=== PATIENT | male | born 1945 | race Caucasian/White ===

== ENCOUNTER 2018-04-12 11:16 | Inpatient (IN) ==
[2018-04-12] MEDS ORDERED: Metoprolol Tartrate 25 MG Tablet PO ONE (12:26)
[2018-04-12] MEDS ORDERED: Chlorhexidine Gluconate 2% 1 Pack (2 Cloths) TOPICAL ONE (12:26)
[2018-04-12] MEDS ORDERED: ceFAZolin 2 GM IV; once IV.SIG ONE (12:45)
[2018-04-12 12:51] LABS: INR 1.2 Ratio; Prothrombin Time 11.9 sec (9.8-11.6)
[2018-04-12] MEDS ORDERED: Sodium Chlor 0.9% Inj 500 ML IV.SIG SCH (13:00)
[2018-04-12] MEDS ORDERED: Bupivacaine PF 0.5% Inj 30 ML Vial ONE (13:08)
[2018-04-12] MEDS ORDERED: Bupivacaine Liposomal PF 1.3% Inj 20 ML Vial ONE (13:08)
[2018-04-12] MEDS ORDERED: Bupivacaine/Epinephrine 0.5% Inj 50 ML Vial ONE (13:33)
[2018-04-12] MEDS ORDERED: Neostigmine Inj 5 MG/5 ML Syringe IV.PUSH ONE (13:48)
[2018-04-12] MEDS ORDERED: Phenylephrine/NS 1000 MCG/10ML Syringe IV.PUSH ONE (13:48)
[2018-04-12] MEDS ORDERED: Succinylcholine Inj 100 MG/5 ML Syringe IV.PUSH ONE (13:48)
[2018-04-12] MEDS ORDERED: Glycopyrrolate Inj 1 MG/5 ML Syringe IV.PUSH ONE (13:48)
[2018-04-12] MEDS ORDERED: Normosol-R pH 7.4 Inj 1,000 ML IV.CONT ONE (13:48)
[2018-04-12] MEDS ORDERED: Promethazine 25 MG Supp RECTAL PRN (17:12)
[2018-04-12] MEDS ORDERED: Bisacodyl 10 MG Supp RECTAL PRN (17:12)
[2018-04-12] MEDS ORDERED: Naloxone Inj 0.4 MG/ML Vial IV.PUSH PRN (17:12)
[2018-04-12] MEDS ORDERED: Post-op Orders (for Pharmacy) OTHER ONE (17:12)
[2018-04-12] MEDS ORDERED: Morphine Sulfate Inj 2 MG/ML Vial IV.PUSH PRN (17:12)
[2018-04-12] MEDS ORDERED: Morphine Inj 4 MG/ML Vial IV.PUSH PRN (17:12)
[2018-04-12] MEDS ORDERED: Zolpidem Tartrate 5 MG Tablet PO PRN (17:12)
[2018-04-12] MEDS ORDERED: fentaNYL Citrate Inj 100 MCG/2 ML Ampul ONE (17:31)
[2018-04-12] MEDS: Sod Chloride 0.9% Inj 1,000 ML IV.CONT SCH (17:57)
[2018-04-12] MEDS ORDERED: Enoxaparin Inj 40 MG/0.4 ML Syringe SQ ONE (18:00)
--- NOTE | 2018-04-12 18:17 | MP ---
cc: Jersey Goldberg MD DATE OF OPERATION: 04/12/2018 PREOPERATIVE DIAGNOSES: 1. Unresectable ascending colon polyp. 2. Biopsy of ascending polyp showing suspicious for high-grade dysplasia. POSTOPERATIVE DIAGNOSES: 1. Unresectable ascending colon polyp. 2. Biopsy of ascending polyp showing suspicious for high-grade dysplasia. PROCEDURE PERFORMED: Laparoscopic right hemicolectomy. ATTENDING SURGEON: Jersey Goldberg MD. RELIABILITY TECHNICIAN: Operating room staff first crusher. ANESTHESIA: General and regional TAP block, as well as local anesthetic. ESTIMATED BLOOD LOSS: 25 mL. FINDINGS: 1. A tattoo in the descending colon close to the hepatic flexure. 2. Intraoperative consultation with pathology showing a tumor/polyp mass in the vicinity of the tattoo, in the specimen. 3. No evidence of any intra-abdominal pathology or metastatic disease on diagnostic laparoscopy. INDICATIONS FOR PROCEDURE: The patient is a 72-year-old male, who was identified to having an ascending polyp with high-grade dysplasia on a colonoscopy. The patient was referred to surgical oncology for further evaluation and management. On staging CT scan, he had no evidence of any metastatic disease and there was noted to be some potential changes of the right colon with no evidence of any lymphadenopathy. Discussed with the patient treatment including laparoscopic versus open right hemicolectomy for treatment of his polyp and possible colon cancer. The patient agreed to undergo the procedure. DESCRIPTION OF PROCEDURE: The patient was taken to the operating room and placed in supine position, placed under general endotracheal anesthesia. The patient's abdomen was shaved, prepped and draped in sterile fashion. Timeout was performed. The abdomen was entered through a Rajendra direct entry technique through the periumbilical incision. We placed a 5 mm 0-degree camera into the abdomen through a 10 mm port below the umbilicus and surveyed the abdomen. There is no evidence of any complication from our entry. There was normal-appearing liver. The gallbladder was distended. There is no evidence of any metastatic disease. There was a tattoo in the ascending colon near the hepatic flexure. We placed a 5 mm port in right upper quadrant and a 5 mm port in the suprapubic area under direct visualization of the laparoscope. We were able to use the laparoscopic LigaSure to take down the white line of Toldt and completely mobilized the right colon from lateral to medial. We also took down the hepatic flexure as well. We then turned our attention to the medial and lateral approach and identify the vascular bundle in the ileocolic region. We dissected around these vessels with a laparoscopic LigaSure until they were isolated, but not completely dissected from the surrounding mesenteric fat. We used 2 white loads on Corn KAYLAN staplers to divide the ileocolic vessels and took a poorly. At this point in time, we had a very mobile right colon. It was amenable to a small hand port to remove the colon and perform our anastomosis. We performed a horizontal incision approximately 2 inches long in the right upper quadrant by extending the port in the right upper quadrant laterally. This was done with a 15 blade scalpel. Bovie electrocautery was dissected subcutaneous tissue and open the external rectus fascia. We dissected the rectus muscles free from the surrounding rectus fascia and retracted it laterally. We divided the posterior rectus fascia and entered the peritoneum with the LigaSure. We placed an Kishore small wound protector. We were able to grasp the right colon and bring this out of the patient through the hand port quite easily. We had the terminal ileum all the way to the transverse colon extracorporal through our hand port. We then divided the terminal ileum. As well as the transverse colon just past the hepatic flexure with the blue loads on the Corn stapler. Taking the remaining small areas of mesentery down with the LigaSure and passed the specimen off for intraoperative consultation by pathology. This returned the specimen with the polypoid mass. We then performed a [id number] functional end-to-end anastomosis with the terminal ileum and the proximal transverse colon. This was done with blue load on the Corn 60 stapler and then the staple defect was closed with a second Corn 60 blue load. Excellent intact staple lines with good viable, pink healthy tissue and without bleeding. We placed 3-0 silk pop-off sutures proximal and distal on the crotch of the staple line, as well as distal stapled ends. We closed the mesenteric defect with a running 3-0 Vicryl suture. We then placed the anastomosis back into the abdomen and assured this was not twisted. placed omentum back over the midline. We took out our hand port and closed the posterior rectus sheath with a running 0 Vicryl suture. We then closed the anterior rectus sheath with a second 0 Vicryl suture once we had placed the rectus muscle back in the proper anatomic position. The rectus muscles of note were not divided in any way. We then closed the Jeremi's fascia and skin with 3-0 Vicryl followed by 4-0 Vicryl and Dermabond. We did reinsufflate the abdomen and looked through the 10 mm port to survey the abdomen and there again was no evidence of any complication from the surgery and the anastomosis lay in the right upper quadrant. The omentum was overlying the midline and the anastomosis. We then removed a 5 mm suprapubic port under visualization of the laparoscope and expressed pneumoperitoneum. We placed a [id number] suture and the Rajendra entry site below the umbilicus at the level of the fascia. We closed the skin of the 2 port sites with 4-0 Vicryl and Dermabond. The patient underwent regional TAP block for anesthesia report after the procedure. The patient was transferred to the recovery room in stable condition after being extubated and then discontinued from anesthesia. The patient tolerated the procedure well and there were no apparent complications. All counts were correct, and I was present and scrubbed for the entire procedure. MD SUMMER JuarezG/pilar , 04:59 PM , 05:14 PM MTDD
[2018-04-12] MEDS ORDERED: ceFAZolin Inj 1,000 MG in Sodium Chlor 0.9% Inj 100 ML IV.SIG SCH (22:00)
[2018-04-12] MEDS: ceFAZolin 1 GM Premix Inj 1 GM/50 ML FROZ.PIGGY IV.SIG SCH (22:03)
[2018-04-12] MEDS: Senna/Docusate Sodium 8.6/50 MG Tablet PO SCH (22:53)
[2018-04-13] MEDS: Sod Chloride 0.9% Inj 1,000 ML IV.CONT SCH ×3 (02:32→13:06)
[2018-04-13] MEDS: ceFAZolin 1 GM Premix Inj 1 GM/50 ML FROZ.PIGGY IV.SIG SCH ×2 (05:06→13:04)
[2018-04-13] MEDS: Levothyroxine 100 MCG Tablet PO SCH (05:07)
[2018-04-13] MEDS: Senna/Docusate Sodium 8.6/50 MG Tablet PO SCH ×2 (09:07→20:35)
[2018-04-13] MEDS: Lisinopril 5 MG Tablet PO SCH (09:07)
--- NOTE | 2018-04-13 17:15 | P.PNGS ---
Subjective Interval history: Up to chair Little nausea earlier today but better now Pain controlled Physical Exam Vital signs: Vital Signs 04/12/18 17:13 04/12/18 17:30 04/12/18 17:45 Temperature 98.2 F Pulse Rate 69 70 69 Respiratory Rate 18 18 18 Blood Pressure 126/66 126/66 131/67 Pulse Oximetry 95 95 95 04/12/18 18:00 04/12/18 20:00 04/12/18 22:52 Temperature 98 F 98.0 F Pulse Rate 69 70 Respiratory Rate 18 18 20 Blood Pressure 126/63 137/68 Pulse Oximetry 95 96 04/13/18 00:00 04/13/18 04:00 04/13/18 04:20 Temperature 97.3 F L 97.9 F Pulse Rate 70 70 Respiratory Rate 19 19 20 Blood Pressure 131/67 142/73 H Pulse Oximetry 95 95 04/13/18 08:00 04/13/18 09:20 04/13/18 12:00 Temperature 97.7 F 98.1 F Pulse Rate 70 70 Respiratory Rate 18 4 L 18 Blood Pressure 137/66 137/71 Pulse Oximetry 94 L 96 04/13/18 16:00 Temperature 97.3 F L Pulse Rate 71 Respiratory Rate 18 Blood Pressure 137/65 Pulse Oximetry 96 Intake & Output 04/12/18 04/13/18 04/13/18 18:59 06:59 18:59 Intake Total 2450 / 2450 2400 / 2400 1350 / 1350 Output Total 370 / 370 600 / 600 350 / 350 Balance 2080 / 2080 1800 / 1800 1000 / 1000 Weight 138.2 kg 140.1 kg Intake: IV 150 / 150 1500 / 1500 1350 / 1350 NS Inj 1,000 ML @ 100 mls/hr IV 1000 / 1000 1000 / 1000 .CONT .Q10H [facility] Rx#:[id number] Ofirmev Inj 1,000 mg In 100 ml 200 / 200 200 / 200 @ 400 mls/hr IV.SIG Q6H [facility] Rx# :[id number] Ancef 1 GM Premix Inj 1 gm In 100 / 100 50 / 50 50 ml @ 100 mls/hr IV.SIG Q8H [facility] Rx#:[id number] Ancef 2 GM Premix Inj 2 gm In 50 / 50 50 ml @ 100 mls/hr IV.SIG ONCE ONE Rx#:[id number] Flagyl 500 MG Inj 100 ML @ 200 100 / 100 200 / 200 100 / 100 mls/hr IV.SIG Q8H [facility] Rx#: [id number] Oral 900 / 900 Anesthesia Amount 2300 / 2300 Output: Urine 600 / 600 350 / 350 Estimated Blood Loss 20 / 20 Urine Amount (Catheter) 350 / 350 Indwelling Urethral Catheter 350 / 350 Other: Date of Last Bowel Movement 04/23/18 Weight On Admission 138 kg Narrative: Alert and awake Abd: mildly distended; soft; minimally tender - Urinary Catheter Management Indwelling Urethral Catheter Cath placed during this visit: yes Reason for continuing: Not indwelling catheter Insertion date: 04/12/18 Insertion time: 14:08 Results - Labs 04/15/18 05:40 Assessment and Plan - Plan 72 year old male POD1 lap assisted RIGHT hemicolectomy -Full liquids -IVF -OOB as tolerated -Bernabe removed; + post removal void - Attending Attestation The exam, history, and the medical decision-making described in the above note were completed with the assistance of the mid-level provider. I reviewed and agree with the findings presented. I attest that I had a [id number] encounter with the patient on the same day, and personally performed and documented my assessment and findings in the medical record. Patient s/p lap R swathi Abdominal exam soft, nontender ex postop pain, inc c/d/i await bowel fxn OOB
--- NOTE | 2018-04-13 20:07 | ECG ---
Date Performed: 04/12/2018 Time Performed: 11:50:56 PTAGE: 72 years EKG: ELECTRONIC VENTRICULAR PACEMAKER ABNORMAL RHYTHM ECG PREVIOUS TRACING : 02/26/2014 12.02 Since the previous tracing, no significant change noted DOCTOR: Donta Cooper Interpretating Date/Time 04/13/2018 20:05:48
[2018-04-14] MEDS: Levothyroxine 100 MCG Tablet PO SCH (05:05)
[2018-04-14] MEDS: Sod Chloride 0.9% Inj 1,000 ML IV.CONT SCH ×3 (05:06→21:40)
[2018-04-14] MEDS: Lisinopril 5 MG Tablet PO SCH (09:17)
[2018-04-14] MEDS: Senna/Docusate Sodium 8.6/50 MG Tablet PO SCH ×2 (09:18→21:40)
[2018-04-14 09:30] VITALS: PULSE 70
--- NOTE | 2018-04-14 15:49 | P.PNGS ---
Subjective Interval history: Up to chair No issues overnight or today Had liquids dark BM Physical Exam Vital signs: Vital Signs 04/13/18 16:00 04/13/18 20:00 04/14/18 00:00 Temperature 97.3 F L 98.6 F 97.5 F L Pulse Rate 71 70 70 Respiratory Rate 18 18 18 Blood Pressure 137/65 142/75 H 142/73 H Pulse Oximetry 96 96 96 04/14/18 04:00 04/14/18 08:00 04/14/18 10:05 Temperature 98.2 F 97.7 F Pulse Rate 72 70 Respiratory Rate 18 22 Blood Pressure 138/74 140/72 Pulse Oximetry 96 96 95 04/14/18 11:50 Temperature 97.6 F Pulse Rate 70 Respiratory Rate 18 Blood Pressure 138/72 Pulse Oximetry 96 Intake & Output 04/13/18 04/14/18 04/14/18 18:59 06:59 18:59 Intake Total 2150 / 2150 2120 / 2120 1000 / 1000 Output Total 1150 / 1150 800 / 800 Balance 1000 / 1000 1320 / 1320 1000 / 1000 Weight 141.5 kg Intake: IV 1350 / 1350 2000 / 2000 1000 / 1000 NS Inj 1,000 ML @ 100 mls/hr IV 1000 / 1000 1000 / 1000 1000 / 1000 .CONT .Q10H [facility] Rx#:[id number] Ofirmev Inj 1,000 mg In 100 ml 200 / 200 @ 400 mls/hr IV.SIG Q6H [facility] Rx# :[id number] LR 1000 mL Inj 1,000 ML @ 30 1000 / 1000 mls/hr IV.SIG .Q24H [facility] Rx#: [id number] Ancef 1 GM Premix Inj 1 gm In 50 / 50 50 ml @ 100 mls/hr IV.SIG Q8H [facility] Rx#:[id number] Flagyl 500 MG Inj 100 ML @ 200 100 / 100 mls/hr IV.SIG Q8H [facility] Rx#: [id number] Oral 800 / 800 120 / 120 Output: Urine 1150 / 1150 800 / 800 Other: # Voids 1 Date of Last Bowel Movement 04/23/18 04/14/18 # Bowel Movements 1 Narrative: Alert and awake Abd: soft; minimally tender around large RIGHT sided incision; c/d/i - Urinary Catheter Management Indwelling Urethral Catheter Cath placed during this visit: yes Reason for continuing: Not indwelling catheter Insertion date: 04/12/18 Insertion time: 14:08 Results - Labs 04/15/18 05:40 Assessment and Plan - Plan 72 year old male POD2 lap assisted RIGHT hemicolectomy -Full liquids; will advance to soft diet in the morning -IVF -OOB as tolerated -CBC and INR in the morning - Attending Attestation The exam, history, and the medical decision-making described in the above note were completed with the assistance of the mid-level provider. I reviewed and agree with the findings presented. I attest that I had a [id number] encounter with the patient on the same day, and personally performed and documented my assessment and findings in the medical record. Patient s/p lap R swathi Abdominal exam soft, nontender tolerating PO, has some flatus DC home soon
[2018-04-14 22:39] VITALS: RESP 18
[2018-04-15 05:50] LABS: Baso % (Auto) 0.4 % (0.0-2.0); Eos # (Auto) 0.1 th/mm3 (0.0-0.4); Hematocrit 34.7 % (39.0-51.0); Hemoglobin 11.8 gm/dL (13.0-17.0); Lymph # (Auto) 1.3 th/mm3 (1.0-4.8); Lymph % (Auto) 20.9 % (9.0-44.0); Mean Corpuscular HGB Conc 33.9 % (32.0-36.0); Mean Corpuscular Hemoglobin 29.9 pg (27.0-34.0); Mean Corpuscular Volume 88.1 fL (80.0-100.0); Mean Platelet Volume 8.1 fL (7.0-11.0); Mono # (Auto) 0.5 th/mm3 (0.0-0.9); Mono % (Auto) 7.9 % (0.0-8.0); Neut # (Auto) 4.4 th/mm3 (1.8-7.7); Neut % (Auto) 69.8 % (16.0-70.0); Platelet Count 151 th/mm3 (150-450); Red Blood Count 3.94 mil/mm3 (4.50-5.90); White Blood Count 6.3 th/mm3 (4.0-11.0)
[2018-04-15 06:00] LABS: INR 1.1 Ratio; Prothrombin Time 11.3 sec (9.8-11.6)
[2018-04-15] MEDS: Levothyroxine 100 MCG Tablet PO SCH (06:12)
[2018-04-15] MEDS: Sod Chloride 0.9% Inj 1,000 ML IV.CONT SCH ×2 (06:13→11:03)
[2018-04-15] MEDS: Senna/Docusate Sodium 8.6/50 MG Tablet PO SCH (08:16)
[2018-04-15] MEDS: Lisinopril 5 MG Tablet PO SCH (08:16)
--- NOTE | 2018-04-15 11:46 | P.DS ---
Date of admission: 04/12/18 17:27 Primary care physician: Rajan Carrasquillo Attending physician on discharge: Jersey Goldberg Anticipated date of discharge: 04/15/18 Brief History from admission: 72 year old male POD3 lap assisted RIGHT hemicolectomy DS: Summary Hospital Course: This is a 72 year old male POD3 lap assisted RIGHT hemicolectomy. The patient was able to tolerate a regular diet. The patient's pain was controlled using oral pain medications. He will follow up in the office. - Time Spent with Patient Total time spent providing and/or coordinating discharge services: Less than 30 minutes - Quality: VTE Deep Vein Thrombosis/Pulmonary Embolism Present on Admission: No Exam Vital signs: Vital Signs 04/14/18 11:50 04/14/18 16:00 04/14/18 20:00 Temperature 97.6 F 97.2 F L 98.4 F Pulse Rate 70 70 70 Respiratory Rate 18 20 18 Blood Pressure 138/72 131/74 151/75 H Pulse Oximetry 96 98 99 04/15/18 00:00 04/15/18 07:17 Temperature 98.1 F 98.1 F Pulse Rate 70 70 Respiratory Rate 18 18 Blood Pressure 136/71 131/75 Pulse Oximetry 95 97 Intake & Output 04/14/18 04/15/18 04/15/18 18:59 06:59 18:59 Intake Total 1000 / 1000 2000 / 2000 1000 / 1000 Output Total 1500 / 1500 900 / 900 Balance -500 / -500 1100 / 1100 1000 / 1000 Weight 144.8 kg Intake: IV 1000 / 1000 2000 / 2000 1000 / 1000 NS Inj 1,000 ML @ 100 mls/hr IV 1000 / 1000 2000 / 2000 1000 / 1000 .CONT .Q10H [facility] Rx#:[id number] Output: Urine 1500 / 1500 900 / 900 Other: Date of Last Bowel Movement 04/14/18 04/14/18 # Bowel Movements 1 Narrative: Alert and awake Abd: soft; incisions with skin glue---c/d/i Results Procedures completed during hospitalization: 72 year old male POD3 lap assisted RIGHT hemicolectomy Labs on day of discharge: Labs from last 24 hours 04/15/18 04/15/18 05:40 05:40 WBC 6.3 RBC 3.94 L Hgb 11.8 L Hct 34.7 L MCV 88.1 MCH 29.9 MCHC 33.9 RDW 15.0 Plt Count 151 MPV 8.1 Neut % (Auto) 69.8 Lymph % (Auto) 20.9 Nuckolls % (Auto) 7.9 Eos % (Auto) 1.0 Baso % (Auto) 0.4 Neut # (Auto) 4.4 Lymph # (Auto) 1.3 Nuckolls # (Auto) 0.5 Eos # (Auto) 0.1 Baso # (Auto) 0.0 WBC Differential . Differential Comment Auto diff final PT 11.3 INR 1.1 Discharge Plan - Discharge Disposition Patient Disposition: 01 Discharge Home - Discharge Condition Condition: Good - Discharge Order Discharge Orders: Discharge Order (Routine); Ordered 04/15/18 Ordered By: Salina Soliz - Discharge Details Anticipated Discharge Date: 04/15/18 Discharge Comment: rx on chart - Physicians Team Primary Care Provider: Rajan Carrasquillo Attending Provider: Jersey Goldberg Other Providers: [employer] - Rxs /Orders / Referrals /Forms Prescriptions: Continue atorvastatin 10 mg Tablet 10 mg PO DAILY levothyroxine 100 mcg Tablet 100 mcg PO DAILY lisinopril 5 mg Tablet 5 mg PO DAILY warfarin 10 mg Tablet 10 mg PO DAILY Referrals: Jersey Goldberg MD [Physician] - See Instructions (Appt set for Apr 21 at 2:10PM ) Rajan Carrasquillo III [Primary Care Provider] - 04/26/18 9:45 am - Discharge Instructions Patient Printed Instructions: Laparoscopic Bowel Resection (DC), Colectomy Diet (DC)
[2018-04-15 12:17] VITALS: BP 138/80; TEMP 97.7; O2SAT 96
== END 2018-04-15 13:21 | disposition home or self-care (01) ==
LOC: HSDC 11:16 → EDSTATUS 13:30 → HSDI 17:27 → N07 18:18
PROVIDERS: ADMIT Surgery; ATTEND Surgery